=== PATIENT | male | born 1990 | race Two or more races ===

== ENCOUNTER 2017-06-30 10:46 | Emergency (ER) | payer OTHER ==
[~2017-06-30] VITALS: Ht 160 cm; Wt 108.9 kg
--- NOTE | 2017-06-30 11:10 | Emergency Room Report ---
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 N Clinical Suspician of Infection? N Mental Status: 1 - Regular (Normal Baseline) Sepsis Risk:Low Sepsis Risk Have you (or family members/close friends) recently traveled outside the [place]? N If Yes, where/when: Have you had exposure to infectious disease within the past month? TB? Other? Specify: pt states he ate marijuana laced cookies states he feels lightheaded and has some nausea he denies any pain complaints no fevers or chills he is here with multiple individuals, 5 in total, who all ingested the same substance that tasted like marijuana. they ingested about 2 hours prior to arrival. ALLERGIES Coded Allergies: No Known Allergies (06/30/17) History Medical History Immunization Hx Ped.Immunizations UTD Yes DT/Tetanus 1-4 Years Ago Surgical Hx Previous Surgery?N Social History Smoking Hx Smoker: Current Some Day Smoker Tobacco: Yes Type Cigarettes Packs/day N/A Are you/the child exposed to second-hand smoke: No Alcohol Alcohol: Yes Review of Systems All Other Systems Reviewed and Negative Physical Exam Vital Signs Vital Signs Date Time Temp Pulse Resp B/P Pulse O2 O2 Flow FiO2 Ox Delivery Rate 06/30 1150 98 18 122/89 97 06/30 1049 97.8 133 18 127/100 95 General Appearance: Nontoxic Head: Normocephalic, without obvious abnormality, atraumatic. Eyes: conjunctiva/corneas clear ENT: Mucous membranes moist. Neck: No jugular venous distention. Cardiac: regular rate and rhythm Lungs: Clear to auscultation bilaterally Abdomen: Nontender, Nondistended, positive bowel sounds, no rebound : No CVA tenderness Extremities: no edema Musculoskeletal: No chest wall tenderness Skin: No rashes or lesions to exposed skin. Neurologic: Alert. No gross focal deficits Psychiatric: Normal affect (Herfel MD, Manuel) General Appearance normal appearance Respiratory Status No: respiratory distress. Cardiovascular normal exam Neurologic alert Medical Decision Making LABS/Meds/Orders Pt receiving controlled substance in ED? No Comment 1136 2/ of the same overdose patients who are more symptomatic have low potassium levels. labs ekg ordered. ER electrocardiogram read by myself as a rate of 97 normal sinus rhythm. QT corrected 424 there are some Q waves in the inferior leads septic electrocardiogram 106pm pt smiling, has no complaints. Labs unremarkable. Has been over 4 hours since ingestion per report. Results/Orders Laboratory Tests 06/30/17 1141: Troponin I < 0.02 06/30/17 1141: Sodium 136, Potassium 4.4, Chloride 104, Carbon Dioxide 29, BUN 13, Creatinine 0.9, Estimated Creat Clear 192, Estimated GFR (MDRD) 102, Glucose 132 H, Calcium 9.5, Total Bilirubin 0.3, AST 21, ALT 46, Alkaline Phosphatase 73, Total Protein 7.3, Albumin 4.0, Globulin 3.3 H, Albumin/Globulin Ratio 1.2, WBC 7.8, RBC 4.70, Hgb 13.8 L, Hct 41.8 L, MCV 89.0, RDW 13.0, Plt Count 169, MPV 9.1, Gran % 74.7, Gran # 5.8, Lymphocytes % 20.1, Monocytes % 4.1, Eosinophils % 0.8, Basophils % 0.4, Lymphocytes # 1.6, Monocytes # 0.3, Eosinophils # 0.1, Basophils # 0.0, PUBS MCHC 33.1, MCH 29.5 Current Medication Orders Sig/Cedric Start time Last Medication Dose Route Stop Time Status Admin Ondansetron HCl 4 MG ONCE ONE 06/30 1115 DC PO 06/30 1116 Orders Procedure Date/time Status TROPONIN I 06/30 1154 Complete CYTOLOGY SUPERVISOR 06/30 1139 Active ELECTROCARDIOGRAM REQUEST 06/30 113 Active CBC WITH AUTO DIFF 06/30 113 Complete CHEM 12 PROFILE 06/30 1130 Complete 12 LEAD EKG-BESSON (INITIAL) 06/30 UNK Active Departure Departure Time of Disposition 1307 Disposition DC Home or Self Care(routine) Clinical Impression Primary Impression: Drug ingestion Qualifiers: Encounter type: initial encounter Injury intent: accidental or unintentional Qualified Code: T50.908I - Poisoning by unspecified drugs, medicaments and biological substances, accidental (unintentional), initial encounter Condition STABLE Patient Instructions DI for Drug Abuse and Drug Addiction Additional Instructions return to ER if worse or any problems Discharge Counseling Counseled pt/family regarding diagnosis, test results, R/B of controlled subst., medications/RX, home care, follow up needs ED Critical Care Critical Care No at 1301
[2017-06-30 11:56] LABS: HEMOGLOBIN 13.8 g/dL (14.1-18.0); LYMPH # 1.6 K/mm3 (0.7-4.5); LYMPH % 20.1 % (10-50)
--- OUTSIDE RECORDS SUMMARY | 2017-06-30 12:47 | External Medical Summary Rpt | CCD ---
Demographics Preferred Language British Marital Status Unknown Protestant Affiliation Unknown Race Unknown Ethnic Group Unknown Author Author , ROLY DUNHAM Address Unknown Phone Immunization No patient found.
--- OUTSIDE RECORDS SUMMARY | 2017-06-30 12:47 | External Medical Summary Rpt | CCD ---
Author Author [employer] Organization [employer] Address Unknown Phone Unavailable Purpose Continuity of Care Document - through 2016
--- OUTSIDE RECORDS SUMMARY | 2017-06-30 12:47 | External Medical Summary Rpt | CCD ---
Author Author ROLY Address Unknown Phone [email or web address] Purpose Continuity of Care Document - through 2016
--- OUTSIDE RECORDS SUMMARY | 2017-06-30 12:47 | External Medical Summary Rpt | CCD ---
Author Author ROLY Address Unknown Phone [email or web address] Purpose Continuity of Care Document - through 2016
--- OUTSIDE RECORDS SUMMARY | 2017-06-30 12:47 | External Medical Summary Rpt | CCD ---
Demographics Preferred Language Pakistani Marital Status Unknown Taoist Affiliation Unknown Race Unknown Ethnic Group Unknown Author Author , ROLY DUNHAM Address Unknown Phone Immunization No patient found.
[2017-06-30 13:10] VITALS: BP 122/89
== END 2017-06-30 13:10 | disposition home or self-care (01) ==
LOC: ER 10:46
PROVIDERS: Emergency Medicine
DX: T50.901A Poisoning by unspecified drugs, medicaments and biological substances, accidental (unintentional), initial encounter (principal)